=== PATIENT | male | born 1935 | race Caucasian/White ===

== ENCOUNTER 2019-12-23 06:31 | Observation (INO) | payer MEDICARE, OTHER ==
[~2019-12-23] VITALS: Ht 180.3 cm; Wt 77.6 kg
[~2019-12-23 06:31] MED LIST: ALTACE10 MG OR; ALTACE5 MG PO; AMLODIPINE2.5 MG PO; AMOXICILLIN500 MG PO; CLARITIN10 M1 PO; FISH OIL1000 MG PO; HYDROCHLOROT12.5 MG PO; LANOXIN0.25 MG PO; LORTAB 5 OR; NORVASC2.5 MG PO; PRILOSEC20 MG PO; SIMVASTATIN40 MG PO; SYNTHROID50 MCG OR; SYNTHROID75 MCG PO; ZOCOR40 MG OR
--- NOTE | 2019-12-23 06:34 | NUR ---
PATIENT TO ROOM 9 VIA WHEELCHAIR. UNDRESSED INTO A GOWN. TRIAGE COMPLETED AT BEDSIDE. AWAITING MD GUERIN.
--- NOTE | 2019-12-23 07:00 | NUR ---
CARE ASSUMED, PT STATES HE HAS BEEN FEELING LIKE HIS HEART IS FLUTTERING AND DIZZY AND RUNDOWN FOR LAST FEW DAYS, ALSO STATES PERIOD S OF DIZZINESS AND SHORTNESS FO BREATH, CURRENTLY SR ON TELE EKG COMPLETED EARLIER, YORDY MEMBERS AT BEDSIDE
[2019-12-23] MEDS ORDERED: SYNTHROID88 MCG PO (07:31)
[2019-12-23] MEDS ORDERED: ATORVASTATIN CA40 MG PO (07:31)
[2019-12-23] MEDS ORDERED: RAMIPRIL2.5 MG PO (07:32)
[2019-12-23] MEDS ORDERED: CLARITIN10 M1 PO (07:32)
[2019-12-23] MEDS ORDERED: HYDROCHLOROT25 MG PO (07:33)
[2019-12-23] MEDS ORDERED: OMEPRAZOLE DR20 MG PO (07:33)
[2019-12-23 07:39] LABS: HEMATOCRIT 42.3 % (39.0-50.0); HEMOGLOBIN 14.7 g/dl (14.0-18.0); IMMATURE GRANULOCYTES 0.2 % (0.0-5.0); MEAN CELL VOLUME 89.4 fL CALC (80.0-100.0); MEAN CORPUSCULAR HGB 31.1 pG CALC (26.0-32.0); MEAN CORPUSCULAR HGB CONC 34.8 g/L CALC (32.0-36.0); NEUT# 4.8 thou/uL (1.82-7.42); RED BLOOD COUNT 4.73 mill/uL (4.70-6.10); RED CELL DISTRI WIDTH 12.1 % (11.5-15.5)
[2019-12-23 07:48] LABS: ALBUMIN 4.1 g/dL (3.2-5.0); ALKALINE PHOSPHATASE 116 u/l (38-126); ANION GAP 11 (6-22 (CALC)); BILIRUBIN, TOTAL 1.3 mg/dL (0.0-1.4); BUN 26 mg/dL (8-23); BUN/CREATININE RATIO 23 (12-20 (CALC)); CARBON DIOXIDE 28 mmol/l (22-30); CHLORIDE 99 mmol/l (95-108); CREATININE 1.1 mg/dL (0.7-1.3); GFR > 60 ML/MIN (>=60 (CALC)); GFR FOR AFR.AMER. > 60 ML/MIN (>=60 (CALC)); POTASSIUM 3.4 mmol/l (3.5-5.1); SGOT/AST 24 u/l (19-48); SODIUM 135 mmol/l (137-146); TOTAL PROTEIN 7.2 g/dL (6.3-8.2)
--- NOTE | 2019-12-23 07:55 | NUR ---
PT RESTING NO NEW COMPLAINTS OFFERED, CALL [facility] WITHIN REACH
[2019-12-23 08:20] LABS: TSH, 3RD GENERATION 3.01 uIU/mL (0.47 - 4.68)
--- NOTE | 2019-12-23 09:09 | NUR ---
ASSISTED TO STANDING FOR URINATION, CALL [facility] WITHIN REACH
--- NOTE | 2019-12-23 10:00 | NUR ---
PT RESTING ON STRETCHER. NO COMPLAINTS OF DIZZINESS. DAUGHTER AT BEDSIDE. PT AO X 3. SKIN WARM, PINK, DRY. PT REPORTS NO FURTER EPISODES OF RAPID HEART RATE.
--- NOTE | 2019-12-23 11:05 | NUR ---
PT AWAITING TELE BED
--- NOTE | 2019-12-23 12:12 | NUR ---
PT RESTING ON STRETCHER. NO COMPLAINTS. AWAITING BED ASSIGNMENT
--- NOTE | 2019-12-23 14:03 | NUR ---
REPORT CALLED TO JIMENEZ YANEZSPEEDER WORKER
--- NOTE | 2019-12-23 14:10 | NUR ---
PT TAKEN VIA WHEELCHAIR TO MED SURG. TELEMETRY IN PLACE
--- NOTE | 2019-12-23 14:10 | NUR ---
PT ARRIVED TO MED/SURG ROOM 273 IN STABLE CONDITION VIA WHEELCHAIR IN STABLE CONDITION ACCOMPANIED BY RENATA QUACH;PT AMBULATED WITH A STEADY GAIT TO STANDING SCALE AND BEDSIDE,WT AND VS OBTAINED BY FLORIN HAWTHORNE;PT REPORTS FLUTTERING OF THE HEART THAT COMES AND COMES,NO CP;PT DENIES ANY CURRENT PAIN OR DISCOMFORTS,PAIN SCALE AND REPORTING EDUCATED;RESPIRATIONS EVEN AND UNLABORED ON RA,CLEAR LUNG SOUNDS;ABDOMEN SOFT ON PALPATION AND ACTIVE IN ALL 4 QUADRANTS,LAST BM 12/22/19;STRONG PEDAL PULSES;STAGE 1 PRESSURE ULCER TO COCCXY NOTED, PHOTOGRAPH OBTAINED AND WOUND DRESSED WITH AQACEL DRESSING;#20G TO RAC FLUSHED AND PATENT,NS TO BE STARTED @ 100ML/HR,SITE APPEARS HEALTHY;TELE MONITORING IN PLACE;ALLERY AND FALL BAND APPLIED;PT DENIES ANY ADDITIONAL NEEDS AND IS ENCOURAGED TO CALL FOR ASSISTANCE IF NEEDED;CALL [facility] IN REACH;WILL CONTINUE TO MONITOR
[2019-12-23 14:15] VITALS: BP 155/81
--- NOTE | 2019-12-23 16:13 | NUR ---
PT RESTING IN SEMI FOWLERS POSITION;DENIES ANY CURRENT CHEST PAIN OR PRESSURE;RESPIRATIONS EVEN AND UNLABORED ON RA;IV FLUIDS INFUSING WITH EASE PER ORDER;TELE MONITORING IN PLACE;PT ENCOURAGED TO CALL FOR ASSISTANCE IF NEEDED;CALL LIGHT IN REACH;WILL CONTINUE TO MONITOR
--- NOTE | 2019-12-23 16:15 | NUR ---
AT BEDSIDE DISCUSSING POC.
--- NOTE | 2019-12-23 18:55 | NUR ---
REPORT RECEIVED FROM MALENA GAONA. PT RESTING IN BED. NO S/S OF DISTRESS AT THIS TIME. SAFETY PRECAUTIONS IN PLACE. WILL CONTINUE TO MONITOR.
[2019-12-23 19:10] VITALS: BP 122/75
[2019-12-23 20:24] VITALS: BP 116/61
--- NOTE | 2019-12-23 21:52 | NUR ---
PT RESTING IN BED. ALERT AND ORIENTED. RESPIRATIONS EVEN AND UNLABORED ON RA. PEDAL PULSES STRONG. PT DENIES ANY PAIN OR DISCOMFORT AT THIS TIME. LUNGS SOUND CLEAR. SAFETY PRECAUTIONS IN PLACE. WILL CONTINUE TO MONITOR.
--- NOTE | 2019-12-24 00:05 | NUR ---
PT RESTING IN BED. RESPIRATIONS EVEN AND UNLABORED ON RA. NO S/S OF DISTRESS AT THIS TIME. WILL CONTINUE TO MONITOR.
[2019-12-24 00:20] VITALS: BP 108/58
--- NOTE | 2019-12-24 04:09 | NUR ---
PT RESTING IN BED. TELE IN PLACE. RESPIRATIONS EVEN AND UNLABORED ON RA. NO S.S OF DISTRESS AT THIS TIME. WILL CONTINUE TO MONITOR.
[2019-12-24 05:09] VITALS: BP 119/68
[2019-12-24 08:20] VITALS: BP 121/68
--- NOTE | 2019-12-24 08:20 | NUR ---
ASSESSMENT IS COMPLETED: IV SITE IS FREE FROM REDNESS OR EDEMA. HR IS REG,PULSES ARE STRONG X4, ABD IS SOFT WITH ACTIVE BS. BREATH SOUNDS ARE CLEAR,BILATERALLY. CONTINUE TO OSEBRVE AND MONITOR.
[2019-12-24 12:00] VITALS: BP 141/73
--- NOTE | 2019-12-24 12:15 | NUR ---
PT IS VISITING WITH FAMILY AND FRIENDS NO DISTRESS NOTED. WAITING ON THE DR TO GET RELEASED.
--- NOTE | 2019-12-24 16:15 | NUR ---
PT IS WAITING WITH FAMILY FOR POSSIBLE DISCHARGE. DR MIRELES IN TO VISIT WITH PT. CONTINUE TO OSBERVE AND MONITOR.
--- NOTE | 2019-12-24 17:15 | NUR ---
IV SITE DISCONTINUED CATHETER INTACT. NO REDNESS OR EDEMA. FAMILY IN THE ROOM. DISCHARGE INSTRUCTIONS GIVEN AND VERBALIZED UNDERSTANDING. CONTINUE TO OBSERVE AND MONITOR.
--- NOTE | 2019-12-24 17:15 | NUR ---
IV SITE AND DISCHARGE INSTRUCTIONS GIVEN AND VERBALIZED UNDERSTANDIGN. FAMILY IN THE ROOM.
--- NOTE | 2019-12-24 18:46 | NUR ---
Discharge instructions given. Patient verbalizes understanding of same. Discharged in stable condition via Wheelchair to Home with family. All belongings sent with pt.
== END 2019-12-24 17:16 | disposition home or self-care (01) ==
LOC: ED 06:31 → ED-I 09:49 → ED 10:03 → ED-I 10:04 → MS2 14:01
PROVIDERS: Family Medicine; ADMIT Internal Medicine; ATTEND Internal Medicine
DX: R00.2 Palpitations (principal); R94.31 Abnormal electrocardiogram [ECG] [EKG]; I10 Essential (primary) hypertension; I70.1 Atherosclerosis of renal artery; I71.4 Abdominal aortic aneurysm, without rupture; Z95.828 Presence of other vascular implants and grafts; E87.6 Hypokalemia
CPT/HCPCS: G0378; J1650